=== PATIENT | male | born 2000 | race Caucasian/White ===

== ENCOUNTER 2019-07-08 16:49 | Emergency (ER) | payer OTHER ==
[2019-07-08 17:27] LABS: ABS Lymphocytes 1.4 10^3/ul (1.0-4.8); ABS Monocytes 0.3 10^3/ul (0-0.8); ABS Neutrophils 4.2 10^3/ul (1.5-7.7); Eosinophil % 0.5 %; Hematocrit 46 % (42-52); Hemoglobin 15.7 g/dL (14.0-18.0); Lymphocyte % 23.1 %; Mean Corpuscular HGB Conc 34 g/dL (31-36); Mean Corpuscular Hemoglobin 33 pg (27-31); Mean Corpuscular Volume 96 fL (80-94); Mean Platelet Volume 10.2 fL (7.4-10.4); Nucleated Red Blood Cells % 0.1; Platelet Count 143 10^3/uL (150-450); Red Blood Count 4.76 10^6 /uL (4.18-5.48); Red Cell Distribution Width 13 % (10-15)
[2019-07-08 17:46] LABS: ALT 25 U/L (7-52); Albumin 5.1 g/dL (3.2-5.2); Albumin/Globulin Ratio 2.1 (1-3); Alkaline Phosphatase 63 U/L (34-104); Blood Urea Nitrogen 24 mg/dL (6-24); C Reactive Protein < 1.00 mg/L (<8.01); CO2 Carbon Dioxide 32 mmol/L (22-32); Calcium 10.5 mg/dL (8.6-10.3); Chloride 99 mmol/L (101-111); EGFR African American 133.2 (>60); EGFR Non-African American 110.1 (>60); Globulin 2.4 g/dL (2-4); Glucose 97 mg/dL (70-100); Sodium 136 mmol/L (135-145); Total Protein 7.5 g/dL (6.4-8.9)
[2019-07-08 18:27] LABS: Anion Gap 5 mmol/L (2-11)
[2019-07-08 19:59] LABS: Potassium Redraw 4.5 mmol/L (3.5-5.0)
[2019-07-08] MEDS ORDERED: Pantoprazole IV* 40 MG IV ONE (22:06)
[2019-07-08] MEDS ORDERED: Lidocaine 2% VISCOUS* 15 ML UDC PO ONE (22:06)
[2019-07-08] MEDS ORDERED: Al Hydrox/Mg Hydrox/Simet LIQ* 30 ML UDC PO ONE (22:06)
[2019-07-08] MEDS ORDERED: Sucralfate TAB* 1 GM PO ONE (22:07)
[2019-07-08] MEDS ORDERED: NS 0.9% 1000 ML** 1,000 ML IV ONE (22:07)
--- NOTE | 2019-07-08 22:10 | ED ---
GI/ HPI - HPI Summary HPI Summary: 18-year-old male presents with abdominal pain for the past couple days. States this pain is in epigastric region. Doesn't radiate anywhere. He states is very severe in nature. he has history of gastric ulcer and it feels pain. Denies any vomiting but admits to nausea. No blood in his stool. No dark tarry stool. No diarrhea constipation. Has been taking omeprazole for two days without any relief. Has also tried Pepto-Bismol with no relief. Denies any chest pressures or shortness of breath. Has no medical conditions. - History of Current Complaint Chief Complaint: EDAbdPain Time Seen by Provider: 07/08/19 21:58 Stated Complaint: ABD PAIN PER PT Pain Intensity: 10 - Allergy/Home Medications Allergies/Adverse Reactions: Allergies Allergy/AdvReac Type Severity Reaction Status Date / Time cefdinir [From Omnicef] Allergy Rash Verified 07/08/19 16:59 Home Medications: Home Medications Al Hydrox/Mg Hydrox/Simet LIQ* [Maalox Plus*] 30 ml PO Q6H PRN #1 udc 07/08/19 [ Rx] HYDROcodone/ACETAMIN 5-325 MG* [[place] 5-325 TAB*] 1 tab PO Q6H PRN #8 tab MDD 4 07/08/19 [Rx] Lidocaine 2% VISCOUS* [Xylocaine 2% Viscous*] 15 ml PO Q6H #1 btl 07/08/19 [Rx] Sucralfate TAB* [Carafate*] 1 gm PO QID #56 tab 07/08/19 [Rx] PMH/Surg Hx/FS Hx/Imm Hx Endocrine/Hematology History: Denies: Hx Anticoagulant Therapy Respiratory History: Denies: Hx Asthma Infectious Disease History: No Infectious Disease History: Denies: Traveled Outside the [place] in Last 30 Days - Family History Known Family History: Positive: Non-Contributory - Social History Smoking Status (MU): Never Smoked Tobacco Review of Systems Negative: Fever Negative: Chest Pain Negative: Shortness Of Breath Positive: Abdominal Pain, Nausea. Negative: Vomiting, Diarrhea All Other Systems Reviewed And Are Negative: Yes Physical Exam Triage Information Reviewed: Yes Vital Signs On Initial Exam: Initial Vitals Temp Pulse Resp BP Pulse Ox 98.2 F 78 16 136/85 97 07/08/19 16:58 07/08/19 16:58 07/08/19 16:58 07/08/19 16:58 07/08/19 16:58 Vital Signs Reviewed: Yes Appearance: Positive: Well-Appearing Skin: Positive: Warm, Dry Head/Face: Positive: Normal Head/Face Inspection Eyes: Positive: Normal, Conjunctiva Clear ENT: Positive: Pharynx normal Respiratory/Lung Sounds: Positive: Clear to Auscultation, Breath Sounds Present Cardiovascular: Positive: Normal, RRR Abdomen Description: Positive: Soft, Other: - tenderness in epigastric Bowel Sounds: Positive: Present Musculoskeletal: Positive: Normal Neurological: Positive: Normal Psychiatric: Positive: Normal Procedures - Sedation Patient Received Moderate/Deep Sedation with Procedure: No Diagnostics - Vital Signs Vital Signs Temp Pulse Resp BP Pulse Ox 07/08/19 20:24 98.7 F 76 20 144/96 98 07/08/19 18:54 98.6 F 77 16 121/82 99 07/08/19 16:58 98.2 F 78 16 136/85 97 - Laboratory Lab Results: Lab Results 07/08/19 07/08/19 07/08/19 Range/Units 17:19 17:19 18:58 WBC 6.0 (3.5-10.8) 10^3/uL RBC 4.76 (4.18-5.48) 10^6 /uL Hgb 15.7 (14.0-18.0) g/dL Hct 46 (42-52) % MCV 96 H (80-94) fL MCH 33 H (27-31) pg MCHC 34 (31-36) g/dL RDW 13 (10-15) % Plt Count 143 L (150-450) 10^3/uL MPV 10.2 (7.4-10.4) fL Neut % (Auto) 70.7 % Lymph % (Auto) 23.1 % Waller % (Auto) 5.2 % Eos % (Auto) 0.5 % Baso % (Auto) 0.5 % Absolute Neuts (auto) 4.2 (1.5-7.7) 10^3/ul Absolute Lymphs (auto) 1.4 (1.0-4.8) 10^3/ul Absolute Monos (auto) 0.3 (0-0.8) 10^3/ul Absolute Eos (auto) 0.0 (0-0.6) 10^3/ul Absolute Basos (auto) 0.0 (0-0.2) 10^3/ul Absolute Nucleated RBC 0.0 10^3/ul Nucleated RBC % 0.1 Sodium 136 (135-145) mmol/L Potassium TNP 4.5 Chloride 99 L (101-111) mmol/L Carbon Dioxide 32 (22-32) mmol/L Anion Gap 5 (2-11) mmol/L BUN 24 (6-24) mg/dL Creatinine 0.89 (0.67-1.17) mg/dL Est GFR ( Amer) 133.2 (>60) Est GFR (Non-Af Amer) 110.1 (>60) BUN/Creatinine Ratio 27.0 H (8-20) Glucose 97 (70-100) mg/dL Calcium 10.5 H (8.6-10.3) mg/dL Total Bilirubin 0.30 (0.2-1.0) mg/dL AST TNP 23 ALT 25 (7-52) U/L Alkaline Phosphatase 63 (34-104) U/L C-Reactive Protein < 1.00 (<8.01) mg/L Total Protein 7.5 (6.4-8.9) g/dL Albumin 5.1 (3.2-5.2) g/dL Globulin 2.4 (2-4) g/dL Albumin/Globulin Ratio 2.1 (1-3) Lipase 38 (11.0-82.0) U/L Result Diagrams: 07/08/19 17:19 07/08/19 18:58 Lab Statement: Any lab studies that have been ordered have been reviewed, and results considered in the medical decision making process. - Ultrasound No standard instances Ultrasound Interpretation Completed By: Radiologist Summary of Ultrasound Findings: IMPRESSION: No acute sonographic pathology. GIGU Course/Dx - Course Course Of Treatment: 18-year-old male presents with abdominal pain for the past couple days. States this pain is in epigastric region. Doesn't radiate anywhere. He states is very severe in nature. he has history of gastric ulcer and it feels pain. Denies any vomiting but admits to nausea. No blood in his stool. No dark tarry stool. No diarrhea constipation. Has been taking omeprazole for two days without any relief. Has also tried Pepto-Bismol with no relief. Denies any chest pressures or shortness of breath. Has no medical conditions. On exam tenderness in epigastric region. White blood count normal. Gallbladder u/s normal. Gave him Protonix and GI cocktail and - Diagnoses Differential Diagnoses - Male: Gall Bladder Disease, Gastritis, Gastroenteritis (Viral) Provider Diagnoses: Epigastric pain Discharge ED - Sign-Out/Discharge Documenting (check all that apply): Patient Departure - Discharge Plan Condition: Good Disposition: HOME Prescriptions: Al Hydrox/Mg Hydrox/Simet LIQ* [Maalox Plus*] 30 ml PO Q6H PRN #1 udc PRN Reason: Dyspepsia HYDROcodone/ACETAMIN 5-325 MG* [[place] 5-325 TAB*] 1 tab PO Q6H PRN #8 tab MDD 4 PRN Reason: Pain - Severe Lidocaine 2% VISCOUS* [Xylocaine 2% Viscous*] 15 ml PO Q6H #1 btl Sucralfate TAB* [Carafate*] 1 gm PO QID #56 tab Patient Education Materials: Epigastric Pain (ED) Referrals: No Primary Care Phys,NOPCP [Medical Doctor] - Shivam Salcido MD [Medical Doctor] - Additional Instructions: Take omeprazole once a day Take Maalox 30ml every 6 hours with 15ml lidocaine for epigastric pain as needed Avoid acidic foods Elevated head of bed Stay upright for at least 30 mins after eating take tyenlol for pain every 6 hours, use norco for breakthrough pain every 6 hours Follow up with GI Return to ED if develop any new or worsening symptoms - Billing Disposition and Condition Condition: GOOD Disposition: Home
[2019-07-08] MEDS ORDERED: HYDROcodone/ACETAMIN 5-325 MG* 1 TAB PO ONE (23:02)
[2019-07-08 23:36] VITALS: BP 128/78
== END 2019-07-08 23:35 | disposition home or self-care (01) ==
LOC: ED 16:49
DX: R10.13 Epigastric pain (principal); Z88.1 Allergy status to other antibiotic agents; R11.0 Nausea
CPT/HCPCS: 36415; 76705; 80053; 83690; 85025; 86140; 96374; 99283; A9270-GY